=== PATIENT | female | born 1975 | race Caucasian/White ===

== ENCOUNTER 2021-04-15 13:53 | Observation (INO) ==
[2021-04-15] MEDS ORDERED: Nitroglycerin 0.4 MG TAB.SUBL SL PRN (15:03)
[2021-04-15 16:40] LABS: BUN/Creatinine Ratio 16 (6-26); Blood Urea Nitrogen 14 mg/dL (6-20); Calcium 9.1 mg/dL (8.6-10.3); Carbon Dioxide 20 mEq/L (23-29); Chloride 110 mEq/L (98-107); Glucose 92 mg/dL (70-105); Osmolality,Calculated 286 (280-300); Sodium 138 mEq/L (136-145); Troponin I < 0.03 ng/mL (< 0.04); eGFR For African Americans > 60 (> 60); eGFR For Non-African Americans > 60 (> 60)
[2021-04-15] MEDS ORDERED: Aspirin 325 MG TABLET PO ONE (16:53)
[2021-04-15] MEDS ORDERED: Ondansetron ODT 4 MG TAB.RAPDIS SL ONE (16:53)
[2021-04-15 17:04] LABS: Basophils # 0.1 K/mcL (0.0-0.2); Basophils % 0.6 %; Eosinophils # 0.1 K/mcL (0.0-0.6); Eosinophils % 1.4 %; Hematocrit 44.3 % (35.3-44.9); Hemoglobin 14.7 g/dL (11.5-15.4); Immature Granulocytes % 0.2 % (0-4); Lymphocytes # 2.6 K/mcL (0.6-4.6); Lymphocytes % 26.8 %; Mean Corpuscular HGB Conc 33.2 g/dL (31.6-35.5); Mean Corpuscular Hemoglobin 30.4 pg (28.0-33.3); Mean Corpuscular Volume 91.5 fL (83.0-100.0); Mean Platelet Volume 11.1 fL (9.4-12.4); Monocytes # 0.7 K/mcL (0.0-1.3); Monocytes % 7.4 %; Neutrophils # 6.2 K/mcL (1.6-8.9); Platelet Count 272 K/mcL (140-400); Red Blood Count 4.84 M/mcL (3.82-4.97); Red Cell Distribution Width 12.4 % (11.5-14.5); Segmented Neutrophils % 63.6 %; White Blood Count 9.7 K/mcL (4.3-11.1)
[2021-04-15 17:44] LABS: Influenza A PCR Negative (Negative); Influenza B PCR Negative (Negative); Resp. Syncytial Virus PCR Negative (Negative); SARS-CoV-2 by PCR (In House) Negative (Negative)
[2021-04-15] MEDS ORDERED: Melatonin 3 MG TABLET PO PRN (17:55)
[2021-04-15] MEDS ORDERED: Naloxone 0.4 MG/ML INJ IVP PRN (17:55)
[2021-04-15] MEDS ORDERED: MOM Conc 10 ML UD.LIQ PO PRN (17:55)
[2021-04-15] MEDS ORDERED: Acetaminophen 325 MG TABLET PO PRN (17:55)
[2021-04-15] MEDS ORDERED: Mag Hydrox/Al Hydrox/Simeth 30 ML UDC PO PRN (17:55)
[2021-04-15] MEDS: Zonisamide 100 MG CAPSULE PO SCH (20:17)
[2021-04-15] MEDS: Gabapentin 400 MG CAPSULE PO SCH (20:17)
[2021-04-15] MEDS: Famotidine 20 MG TABLET PO SCH (20:18)
[2021-04-16] MEDS ORDERED: Morphine Sulfate 2 MG/ML SYRINGE IVP ONE (01:35)
[2021-04-16] MEDS ORDERED: Prochlorperazine 10 MG/2 ML VIAL IVP PRN (02:26)
[2021-04-16 05:15] LABS: Hematocrit 42.3 % (35.3-44.9); Hemoglobin 13.4 g/dL (11.5-15.4); Mean Corpuscular HGB Conc 31.7 g/dL (31.6-35.5); Mean Corpuscular Hemoglobin 28.9 pg (28.0-33.3); Mean Corpuscular Volume 91.4 fL (83.0-100.0); Mean Platelet Volume 9.6 fL (9.4-12.4); Platelet Count 308 K/mcL (140-400); Red Blood Count 4.63 M/mcL (3.82-4.97); Red Cell Distribution Width 12.4 % (11.5-14.5); White Blood Count 7.9 K/mcL (4.3-11.1)
[2021-04-16 05:30] LABS: BUN/Creatinine Ratio 14 (6-26); Blood Urea Nitrogen 12 mg/dL (6-20); Calcium 8.9 mg/dL (8.6-10.3); Carbon Dioxide 22 mEq/L (23-29); Chloride 111 mEq/L (98-107); Chol/HDL Ratio 4.5 (0-4.9); Cholesterol 157 mg/dL (< 200); Glucose 96 mg/dL (70-105); HDL Cholesterol 35 mg/dL (40-59); LDL Cholesterol,Calculated 104 mg/dL (< 100); Magnesium 2.2 mg/dL (1.6-2.6); Osmolality,Calculated 288 (280-300); Sodium 139 mEq/L (136-145); Triglycerides 88 mg/dL (< 150); eGFR For African Americans > 60 (> 60); eGFR For Non-African Americans > 60 (> 60)
[2021-04-16] MEDS: Aspirin 81 MG TAB.CHEW PO SCH (09:34)
[2021-04-16] MEDS: Zonisamide 100 MG CAPSULE PO SCH ×2 (09:34→21:44)
[2021-04-16] MEDS: Gabapentin 400 MG CAPSULE PO SCH ×3 (09:34→21:43)
[2021-04-16] MEDS: Ranolazine 500 MG TAB.ER.12H PO SCH ×2 (13:00→21:44)
[2021-04-16] MEDS: Famotidine 20 MG TABLET PO SCH (21:43)
[2021-04-17] MEDS: Ondansetron ODT 4 MG TAB.RAPDIS SL PRN (00:02)
[2021-04-17] MEDS: *HR* OxyCODONE/APAP 5/325 TABLET PO PRN (01:38)
[2021-04-17] MEDS ORDERED: Regadenoson 0.4 MG/5 ML SYRINGE IVP ONE (06:46)
[2021-04-17] MEDS: Gabapentin 400 MG CAPSULE PO SCH ×3 (10:22→21:11)
[2021-04-17] MEDS: Ranolazine 500 MG TAB.ER.12H PO SCH ×2 (10:22→21:12)
[2021-04-17] MEDS: Aspirin 81 MG TAB.CHEW PO SCH (10:22)
[2021-04-17] MEDS: Zonisamide 100 MG CAPSULE PO SCH ×2 (10:30→21:12)
[2021-04-17] MEDS: Famotidine 20 MG TABLET PO SCH (21:12)
[2021-04-17] MEDS ORDERED: predniSONE 20 MG TABLET PO ONE (23:00)
[2021-04-18 01:38] LABS: Hemoglobin 13.7 g/dL (11.5-15.4); Mean Corpuscular HGB Conc 32.6 g/dL (31.6-35.5); Mean Corpuscular Hemoglobin 29.8 pg (28.0-33.3); Mean Corpuscular Volume 91.3 fL (83.0-100.0); Mean Platelet Volume 9.8 fL (9.4-12.4); Platelet Count 333 K/mcL (140-400); Red Cell Distribution Width 12.3 % (11.5-14.5); White Blood Count 10.2 K/mcL (4.3-11.1)
[2021-04-18 01:51] LABS: BUN/Creatinine Ratio 15 (6-26); Blood Urea Nitrogen 16 mg/dL (6-20); Carbon Dioxide 22 mEq/L (23-29); Chloride 109 mEq/L (98-107); Glucose 149 mg/dL (70-105); Osmolality,Calculated 290 (280-300); Potassium 4.1 mEq/L (3.5-5.1); Sodium 138 mEq/L (136-145); eGFR For African Americans > 60 (> 60); eGFR For Non-African Americans 54 (> 60)
[2021-04-18] MEDS ORDERED: predniSONE 20 MG TABLET PO ONE ×2 (05:00→12:00)
[2021-04-18] MEDS: Aspirin 81 MG TAB.CHEW PO SCH (08:54)
[2021-04-18] MEDS: Ranolazine 500 MG TAB.ER.12H PO SCH ×2 (08:54→22:41)
[2021-04-18] MEDS: Gabapentin 400 MG CAPSULE PO SCH ×3 (08:54→22:41)
[2021-04-18] MEDS: Zonisamide 100 MG CAPSULE PO SCH ×2 (09:00→22:41)
[2021-04-18] MEDS ORDERED: Famotidine 20 MG TABLET PO ONE (12:00)
[2021-04-18] MEDS ORDERED: *HR* FentaNYL (PF) 100 MCG/2 ML VIAL ONE (12:58)
[2021-04-18] MEDS ORDERED: *HR* Midazolam HCl 2 MG/2 ML VIAL ONE (12:58)
[2021-04-18] MEDS ORDERED: Nitroglycerin 1,000 MCG/5 ML VIAL IV ONE (12:59)
[2021-04-18] MEDS ORDERED: *HR* Heparin 10,000 UNIT/10 ML VIAL ONE (12:59)
[2021-04-18] MEDS ORDERED: Heparin 1,000 UNITS/500 mL 500 ML ONE (12:59)
[2021-04-18] MEDS ORDERED: 0.9 % Sodium Chloride 2,000 ML ONE (12:59)
[2021-04-18] MEDS ORDERED: ISOVUE-370 200 ML INFUS..BTL ONE (12:59)
[2021-04-18] MEDS: *HR* OxyCODONE/APAP 5/325 TABLET PO PRN (19:26)
[2021-04-18] MEDS: Famotidine 20 MG TABLET PO SCH (22:41)
[2021-04-19] MEDS: Ondansetron ODT 4 MG TAB.RAPDIS SL PRN (00:28)
[2021-04-19 02:01] LABS: BUN/Creatinine Ratio 15 (6-26); Blood Urea Nitrogen 17 mg/dL (6-20); Calcium 9.5 mg/dL (8.6-10.3); Carbon Dioxide 19 mEq/L (23-29); Chloride 106 mEq/L (98-107); Glucose 209 mg/dL (70-105); Osmolality,Calculated 288 (280-300); Sodium 135 mEq/L (136-145); eGFR For African Americans > 60 (> 60); eGFR For Non-African Americans 51 (> 60)
[2021-04-19] MEDS: *HR* OxyCODONE/APAP 5/325 TABLET PO PRN (05:20)
[2021-04-19 06:56] VITALS: BP 115/72; PULSE 69; TEMP 97.8; O2SAT 96
[2021-04-19] MEDS: Aspirin 81 MG TAB.CHEW PO SCH (08:39)
[2021-04-19] MEDS: Ranolazine 500 MG TAB.ER.12H PO SCH (08:39)
[2021-04-19] MEDS: Zonisamide 100 MG CAPSULE PO SCH (08:39)
[2021-04-19] MEDS: Gabapentin 400 MG CAPSULE PO SCH (08:41)
== END 2021-04-19 13:18 | disposition home or self-care (01) ==
LOC: 3BNU 13:53 → EMEROOARM 13:53 → SUATTDRO 18:02 → 3BNU 18:48
PROVIDERS: ADMIT Family Medicine; ATTEND Internal Medicine